=== PATIENT | female | born 1985 | race Caucasian/White ===

== ENCOUNTER 2017-02-12 16:31 | Emergency (ER) | payer BC ==
[2017-02-12] MEDS ORDERED: Sodium Chloride 0.9% 1,000 ML IV ONE (16:56)
[2017-02-12] MEDS ORDERED: Ondansetron 4 MG/2 ML SDV IVPUSH ONE (16:56)
--- NOTE | 2017-02-12 17:00 | EDM.PDOC ---
ED HPI GENERAL MEDICAL PROBLEM - General Chief Complaint: Gastrointestinal Problem Stated Complaint: THROWING UP Time Seen by Provider: 02/12/17 16:53 - History of Present Illness INITIAL COMMENTS - FREE TEXT/NARRATIVE: HISTORY AND PHYSICAL: History of present illness: Patient is a 31 white female approximately 10 weeks who is had care in ultrasonography that demonstrated a normal healthy first trimester was at concern of vomiting and diarrhea times one day she states she had some Prydeinig food yesterday and feels that that might be the culprit there's been no fever no chills no vaginal discharge bleeding or other concern she has had some mild lower abdominal cramping Review of systems: As per history of present illness and below otherwise all systems reviewed and negative. Past medical history: As per history of present illness and as reviewed below otherwise noncontributory. Surgical history: As per history of present illness and as reviewed below otherwise noncontributory. Social history: No reported history of drug or alcohol abuse. Family history: As per history of present illness and as reviewed below otherwise noncontributory. Physical exam: HEENT: Atraumatic, normocephalic, pupils reactive, negative for conjunctival pallor or scleral icterus, mucous membranes dry, throat clear, neck supple, nontender, trachea midline. Lungs: Clear to auscultation, breath sounds equal bilaterally, chest nontender. Heart: S1S2, regular, negative for clicks, rubs, or JVD. Abdomen: Soft, nondistended, nontender. Negative for masses or hepatosplenomegaly. Negative for costovertebral tenderness. Pelvis: Stable nontender. Genitourinary: Deferred. Rectal: Deferred. Extremities: Atraumatic, negative for cords or calf pain. Neurovascular unremarkable. Neuro: Awake, alert, oriented. Cranial nerves II through XII unremarkable. Cerebellum unremarkable. Motor and sensory unremarkable throughout. Exam nonfocal. Diagnostics: CBC CMP stool for C&S O&P C. difficile Therapeutics: saline 1 L bolus Zofran 4 mg IV Impression: #1 vomiting/diarrhea with dehydration #2 first trimester Definitive disposition and diagnosis as appropriate pending reevaluation and review of above. ABDOMEN Pain Score (Numeric/FACES): 7 - Related Data Allergies Allergy/AdvReac Type Severity Reaction Status Date / Time No Known Allergies Allergy Verified 02/12/17 16:42 Home Meds: Home Meds #103/Iron Fumarate/Fa [ ] 1 tab PO DAILY 02/12/17 [ History] Past Medical History - Past Health History Medical/Surgical History: Denies Medical/Surgical History [employer] History: Reports: - Past Surgical History GI Surgical History: Reports: Appendectomy Social & Family History - Family History Family Medical History: Noncontributory - Tobacco Use Smoking Status *Q: Never Smoker Second Hand Smoke Exposure: No - Caffeine Use Caffeine Use: Reports: None - Recreational Drug Use Recreational Drug Use: No ED ROS GENERAL - Review of Systems Review Of Systems: ROS reveals no pertinent complaints other than HPI. ED EXAM, GENERAL - Physical Exam Exam: See Below (See dictated) Course - Vital Signs Last Recorded V/S: Last Vital Signs Temp 36.8 C 02/12/17 16:44 Pulse 125 H 02/12/17 16:44 Resp 18 02/12/17 16:44 BP 131/84 02/12/17 16:44 Pulse Ox 98 02/12/17 16:44 - Orders/Labs/Meds Orders: Active Orders 24 hr Category Date Time Status CDIFF TOX A+B [OP] Stat Lab 02/12/17 16:58 Uncollected CULTURE STOOL + CAMPY+SHIGATOX [RM] Stat Lab 02/12/17 16:56 Uncollected CULTURE STOOL [RM] Stat Lab 02/12/17 16:56 Uncollected Labs: Laboratory Tests 02/12/17 02/12/17 Range/Units 17:04 17:04 WBC 13.52 H (4.0-11.0) K/uL RBC 4.48 (4.30-5.90) M/uL Hgb 14.8 (12.0-16.0) g/dL Hct 42.3 (36.0-46.0) % MCV 94.4 (80.0-98.0) fL MCH 33.0 H (27.0-32.0) pg MCHC 35.0 (31.0-37.0) g/dL RDW Std Deviation 40.7 (28.0-62.0) fl RDW Coeff of Mary 12 (11.0-15.0) % Plt Count 232 (150-400) K/uL MPV 10.20 (7.40-12.00) fL Neut % (Auto) 92.3 H (48.0-80.0) % Lymph % (Auto) 4.3 L (16.0-40.0) % [place] % (Auto) 3.2 (0.0-15.0) % Eos % (Auto) 0.1 (0.0-7.0) % Baso % (Auto) 0.1 (0.0-1.5) % Neut # (Auto) 12.5 H (1.4-5.7) K/uL Lymph # (Auto) 0.6 (0.6-2.4) K/uL [place] # (Auto) 0.4 (0.0-0.8) K/uL Eos # (Auto) 0.0 (0.0-0.7) K/uL Baso # (Auto) 0.0 (0.0-0.1) K/uL Nucleated RBC % 0.0 /100WBC Nucleated RBCs # 0 K/uL Sodium 135 L (136-146) mmol/L Potassium 3.6 (3.5-5.1) mmol/L Chloride 105 (98-110) mmol/L Carbon Dioxide 19 L (21-31) mmol/L BUN 12 (6.0-23.0) mg/dL Creatinine 0.8 (0.6-1.5) mg/dL Est Cr Clr Drug Dosing 112.20 mL/min Estimated GFR (MDRD) > 60.0 ml/min Glucose 107 (60-110) mg/dL Calcium 9.1 (8.8-10.8) mg/dL Total Bilirubin 0.8 (0.1-1.5) mg/dL AST 25 (5-40) IU/L ALT 35 (8-54) IU/L Alkaline Phosphatase 56 (40-150) Total Protein 7.6 (6.0-8.0) g/dL Albumin 4.4 (3.5-5.0) g/dL Globulin 3.2 (2.0-3.5) g/dL Albumin/Globulin Ratio 1.4 (1.3-2.8) Meds: Medications Discontinued Medications Generic Name Dose Route Start Last Admin Trade Name Freq PRN Reason Stop Dose Admin Sodium Chloride 1,000 mls @ 999 mls/hr 02/12/17 16:56 06/04/17 17:13 Normal Saline IV 02/12/17 17:56 999 mls/hr .Bolus ONE Administration Ondansetron HCl 4 mg 02/12/17 16:56 02/12/17 17:13 Zofran IVPUSH 02/12/17 16:57 4 mg ONETIME ONE Administration Departure - Departure Time of Disposition: 18:03 Disposition: Home, Self-Care 01 Condition: good Clinical Impression: Gastroenteritis, Dehydration, First trimester - Discharge Information Forms: ED Department Discharge Additional Instructions: The following information is given to patients seen in the emergency department who are being discharged to home. This information is to outline your options for follow-up care. We provide all patients seen in our emergency department with a follow-up referral. The need for follow-up, as well as the timing and circumstances, are variable depending upon the specifics of your emergency department visit. If you don't have a primary care physician on staff, we will provide you with a referral. We always advise you to contact your personal physician following an emergency department visit to inform them of the circumstance of the visit and for follow-up with them and/or the need for any referrals to a consulting specialist. The emergency department will also refer you to a specialist when appropriate. This referral assures that you have the opportunity for followup care with a specialist. All of these measure are taken in an effort to provide you with optimal care, which includes your followup. Under all circumstances we always encourage you to contact your private physician who remains a resource for coordinating your care. When calling for followup care, please make the office aware that this follow-up is from your recent emergency room visit. If for any reason you are refused follow-up, please contact the [facility] emergency department at and asked to speak to the emergency department charge nurse. Vaginal rest as discussed push fluids clear liquids as directed followup with primary medical doctor/[employer] 24-48 hours return as needed as discussed - My Orders Last 24 Hours: My Active Orders 02/12/17 16:56 CULTURE STOOL + CAMPY+SHIGATOX [RM] Stat CULTURE STOOL [RM] Stat 02/12/17 16:58 CDIFF TOX A+B [OP] Stat - Assessment/Plan Last 24 Hours: My Active Orders 02/12/17 16:56 CULTURE STOOL + CAMPY+SHIGATOX [RM] Stat CULTURE STOOL [RM] Stat 02/12/17 16:58 CDIFF TOX A+B [OP] Stat
[2017-02-12 17:33] LABS: CHLORIDE,CL 105 mmol/L (98-110); SODIUM,NA 135 mmol/L (136-146)
[2017-02-12 18:52] VITALS: BP 112/62
== END 2017-02-12 18:55 | disposition home or self-care (01) ==
LOC: MW.ED 16:31
DX: O99.611 Diseases of the digestive system complicating pregnancy, first trimester (principal); K52.9 Noninfective gastroenteritis and colitis, unspecified; E86.0 Dehydration; Z3A.10 10 weeks gestation of pregnancy; Z90.49 Acquired absence of other specified parts of digestive tract; Z79.899 Other long term (current) drug therapy
CPT/HCPCS: 36415; 80053; 85025; 96361; 96374; 99284; J2405; J7040

== ENCOUNTER 2017-09-08 14:01 | Inpatient (IN) | payer BC ==
[2017-09-08] MEDS ORDERED: Sodium Chloride 0.9% 2.5 ML Syringe FLUSH PRN (14:19)
[2017-09-08] MEDS ORDERED: Carboprost Tromethamine 250 MCG/1 ML Amp IM PRN (14:19)
[2017-09-08] MEDS ORDERED: Lidocaine 1% 50 ML MDV INJECT PRN (14:19)
[2017-09-08] MEDS ORDERED: Water For Irrigation,Sterile 1,000 ML Container IRR PRN (14:19)
[2017-09-08] MEDS ORDERED: Methylergonovine 0.2 MG/1 ML Amp IM PRN (14:19)
[2017-09-08] MEDS ORDERED: Misoprostol 200 MCG Tab PO PRN (14:19)
[2017-09-08] MEDS ORDERED: Sodium Chloride 0.9% 10 ML Syringe FLUSH PRN (14:19)
[2017-09-08] MEDS ORDERED: Nalbuphine 10 MG/1 ML Vial IVPUSH PRN (14:19)
[2017-09-08] MEDS ORDERED: Butorphanol 1 MG/ML SDV IVPUSH PRN (14:19)
[2017-09-08] MEDS ORDERED: Oxytocin/0.9 % Sodium Chloride 30 UNIT/500 ML BAG IV SCH (14:30)
[2017-09-08] MEDS ORDERED: Lactated Ringers 1,000 ML IV SCH (14:30)
[2017-09-08] MEDS ORDERED: Ropivacaine 0.2% 2 MG/ML 20 ML SDV ONE (15:14)
[2017-09-08] MEDS ORDERED: fentaNYL 100 MCG/2 ML SDV ONE (15:14)
[2017-09-08] MEDS ORDERED: Ropivacaine 100 ML ONE (15:14)
--- NOTE | 2017-09-08 16:01 | PCM.PREANE ---
Preanesthetic Assessment - Procedure Proposed Procedure: labor epidural - Anesthesia/Transfusion/Family Hx Anesthesia History: Prior Anesthesia Without Reaction (appendectomy) Type of Anesthesia Reaction: Other (see below) Family History of Anesthesia Reaction: No Transfusion History: No Prior Transfusion(s) - Review of Systems General: No Symptoms Pulmonary: No Symptoms Cardiovascular: No Symptoms Gastrointestinal: No Symptoms Neurological: No Symptoms Other: Reports: None - Physical Assessment NPO Status Date: 09/08/17 NPO Status Time: 16:00 (clear liquids) ASA Class: 2 Mental Status: Alert & Oriented x3 Airway Class: Mallampati = 2 Dentition: Reports: Normal Dentition Thyro-Mental Finger Breadths: 3 Mouth Opening Finger Breadths: 3 ROM/Head Extension: Full Lungs: Clear to Auscultation, Normal Respiratory Effort Cardiovascular: Regular Rate, Regular Rhythm - Lab Values: Laboratory Last Values WBC 14.18 K/uL (4.0-11.0) H 09/08/17 14:38 RBC 4.19 M/uL (4.30-5.90) L 09/08/17 14:38 Hgb 13.7 g/dL (12.0-16.0) 09/08/17 14:38 Hct 39.8 % (36.0-46.0) 09/08/17 14:38 MCV 95.0 fL (80.0-98.0) 09/08/17 14:38 MCH 32.7 pg (27.0-32.0) H 09/08/17 14:38 MCHC 34.4 g/dL (31.0-37.0) 09/08/17 14:38 RDW Std Deviation 44.7 fl (28.0-62.0) 09/08/17 14:38 RDW Coeff of Mary 13 % (11.0-15.0) 09/08/17 14:38 Plt Count 207 K/uL (150-400) 09/08/17 14:38 MPV 10.40 fL (7.40-12.00) 09/08/17 14:38 Nucleated RBC % 0.0 /100WBC 09/08/17 14:38 Nucleated RBCs # 0 K/uL 09/08/17 14:38 Blood Type AB POSITIVE 09/08/17 14:38 Antibody Screen NEGATIVE 09/08/17 14:38 - Allergies Allergies/Adverse Reactions: Allergies Allergy/AdvReac Type Severity Reaction Status Date / Time No Known Allergies Allergy Verified 02/12/17 16:42 - Blood Blood Available: Yes Product(s) Available: PRBC - Anesthesia Plan Pre-Op Medication Ordered: None - Acknowledgements Anesthesia Type Planned: Epidural Pt an Appropriate Candidate for the Planned Anesthesia: Yes Alternatives and Risks of Anesthesia Discussed w Pt/Guardian: Yes Pt/Guardian Understands and Agrees with Anesthesia Plan: Yes PreAnesthesia Questionnaire - Past Health History Medical/Surgical History: Denies 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: - Past Surgical History GI Surgical History: Reports: Appendectomy - SUBSTANCE USE Smoking Status *Q: Never Smoker Second Hand Smoke Exposure: No Recreational Drug Use History: No - HOME MEDS Home Medications: Home Meds #103/Iron Fumarate/Fa [ ] 1 tab PO DAILY 02/12/17 [ History] - CURRENT (IN HOUSE) MEDS Current Meds: Current Medications Butorphanol Tartrate (Stadol) 1 mg IVPUSH Q1H PRN PRN Reason: Pain Carboprost Tromethamine (Hemabate Ds) 250 mcg IM ASDIRECTED PRN PRN Reason: Post Hemorrhage Lactated Ringer's (Ringers, Lactated) 1,000 mls @ 150 mls/hr IV ASDIRECTED [facility] Last Admin: 09/08/17 14:40 Dose: 999 mls/hr Oxytocin/Sodium Chloride (Oxytocin 30 Unit/500 Ml-Ns) 30 unit in 500 mls @ 999 mls/hr IV TITRATE [facility] Lidocaine HCl (Xylocaine 1%) 50 ml INJECT .ONCE PRN PRN Reason: Laceration repair Methylergonovine Maleate (Methergine) 0.2 mg IM ASDIRECTED PRN PRN Reason: Post Hemorrhage Misoprostol (Cytotec) 200 mcg PO .ONCE PRN PRN Reason: Post Hemorrhage Nalbuphine HCl (Nubain) 10 mg IVPUSH Q1H PRN PRN Reason: Pain (severe 7-10) Sodium Chloride (Saline Flush) 10 ml FLUSH ASDIRECTED PRN PRN Reason: Keep Vein Open Sodium Chloride (Saline Flush) 2.5 ml FLUSH ASDIRECTED PRN PRN Reason: Keep Vein Open Sterile Water (Sterile Water For Irrigation) 1,000 ml IRR ASDIRECTED PRN PRN Reason: delivery Discontinued Medications Fentanyl (Sublimaze) Confirm Administered Dose 300 mcg .ROUTE .STK-MED ONE Stop: 09/08/17 15:15 Ropivacaine (Naropin 0.2%) Confirm Administered Dose 100 mls @ as directed .ROUTE .STK-MED ONE Stop: 09/08/17 15:15 Ropivacaine (Naropin 0.2%) Confirm Administered Dose 20 ml .ROUTE .STK-MED ONE Stop: 09/08/17 15:15
--- NOTE | 2017-09-08 16:05 | PCM.PRNOTE ---
- Free Text/Narrative Note: called to place epidural for increasing labor pain. Pt identified and procedure explained. risks reviewed including bleeding, infection, nerve pain, nerve damage, and unsuccessful epidural. pt agrees both verbally and written consent. sitting up, sterile betadine prep times three with sterile drape. 1% lidocaine given SQ at L3. #17 touhy ANGEL saline, ANGEL easily found at 5 cm. no heme or paresthesia with needle placement, but pt did feel initial paresthesia on right side with catheter placement. catheter placed easily, taped at 10 cm at skin. test dose 1.5% lidocaine with epinephrine 1:200,000. negative reaction. epidural bolus with Patient HOB at 30 degrees, ALEXIS. bolus of 0.2% ropivicaine and 100 mcg fentanyl given in divided doses over 20 minutes. Pt feeling relief with contractions, pain now 2/10. epidural infusion running at 8ml/hr with fentanyl 2 mcg/ml. PCEA bolus available 8 ml/10 min with hourly limit of 30 ml' s. Educated on use of PCEA. vital signs remain stable, FHR stable
[2017-09-08] MEDS ORDERED: Ibuprofen 800 MG Tab PO PRN (19:15)
[2017-09-08] MEDS ORDERED: Benzocaine/Menthol 20%-0.5% Spray 78 GM Cannister TOP PRN (19:15)
[2017-09-08] MEDS ORDERED: Witch Hazel Medicated Pads 40/Jar TOP PRN (19:15)
[2017-09-08] MEDS ORDERED: Lanolin 100% Cream 7 GM Tube TOP PRN (19:15)
[2017-09-08] MEDS ORDERED: Ibuprofen 400 MG Tab PO PRN (19:15)
[2017-09-08] MEDS ORDERED: Docusate Sodium 100 MG Cap PO PRN (19:15)
[2017-09-08] MEDS ORDERED: Acetaminophen 500 MG Tab PO PRN ×2 (19:15)
[2017-09-08] MEDS ORDERED: Bisacodyl 10 MG Supp RECTAL PRN (19:15)
--- NOTE | 2017-09-09 02:00 | OR ---
SURGEON: Klarissa Díaz MD DATE OF PROCEDURE: 09/08/2017 PREOPERATIVE DIAGNOSES: 1. Term at 39 weeks and 4 days. 2. Spontaneous labor. POSTOPERATIVE DIAGNOSES: 1. Term at 39 weeks and 4 days. 2. Spontaneous labor. 3. Delivered. PROCEDURES: 1. Spontaneous vaginal delivery. 2. Repair of perineal laceration. ANESTHESIA: Epidural. ESTIMATED BLOOD LOSS: 100 mL. COMPLICATIONS: None. DISPOSITION: Mother and baby stable, bonding in Labor and Delivery room. FINDINGS: Male , weight 3670 grams, score 9 and 9 at 1 and 5 minutes respectively. Grossly normal placenta with 3-vessel cord. Left labial laceration. BRIEF HISTORY: Shelli is a 32-year-old G2, P1, who presented to Labor and delivery at about 2 o'clock with a history of regular contractions, denied vaginal bleeding or leakage of fluid. Reported movement. The patient had been seen earlier at the clinic in the day for her routine visit and had a membrane sweep performed, at that time, she was 3 cm dilated. When she presented to Labor and Delivery, she was found to be 5 to 6 cm dilated, gayle every 2 to 3 minutes. Membranes intact and requesting an epidural for pain. care was uncomplicated. GBS negative. She received epidural for pain management and thereafter progressed to full dilatation and commenced active pushing. heart tracing remained category 1. She pushed quite well, bringing the head down to + 4 station within 2 contractions and was set up for delivery in modified dorsolithomy position DESCRIPTION OF PROCEDURE: She had a spontaneous vaginal delivery of a live male in direct occipital anterior position with a loose nuchal cord reduced, clear amniotic fluid at delivery.The anterior and the posterior shoulders and the rest of the baby were delivered without difficulty. Baby was vigorous and cried spontaneously at . The baby was delivered onto the maternal abdomen with the nursery nurse in attendant to him. Delayed cord clamping was performed and the cord was subsequently cut by the father of the baby. With delivery of the infant oxytocin infusion, titration was commenced for active management of third stage of labor. Cord blood and gas samples were obtained. The placenta was delivered by controlled cord traction, appeared to be complete and intact. Examination of the perineum revealed left labial laceration extending to the clitoral marion, and it kept bleeding despite digital pressure. It was, therefore, repaired with 3-0 Vicryl using continuous nonlocking stitches. It was hemostatic post repair. Uterine massage was performed. The uterus was found to be well contracted below the umbilicus. The patient tolerated the procedure well. Sponge, instrument, and needle counts were correct at the end of the delivery. ADUMVIV / DBL /[id number] MTDD
--- NOTE | 2017-09-09 09:22 | PCM48HPAN ---
Post Anesthesia Note - EVALUATION WITHIN 48HRS OF ANESTHETIC Vital Signs in Normal Range: Yes Patient Participated in Evaluation: Yes Respiratory Function Stable: Yes Airway Patent: Yes Cardiovascular Function Stable: Yes Hydration Status Stable: Yes Pain Control Satisfactory: Yes Nausea and Vomiting Control Satisfactory: Yes Mental Status Recovered: Yes
--- NOTE | 2017-09-09 13:08 | PCM.PNPP ---
- General Info Date of Service: 09/09/17 Functional Status: Reports: Pain Controlled, Tolerating Diet, Ambulating, Urinating - Review of Systems General: Denies: Fever, Malaise, Chills HEENT: Denies: Headaches, Visual Changes Pulmonary: Denies: Shortness of Breath, Pleuritic Chest Pain Cardiovascular: Denies: Chest Pain, Palpitations, Dyspnea on Exertion Gastrointestinal: Denies: Abdominal Pain Genitourinary: Denies: Dysuria, Urgency, Incontinence, Retention Musculoskeletal: Reports: No Symptoms Skin: Reports: No Symptoms Neurological: Reports: No Symptoms Psychiatric: Reports: No Symptoms - General Info Date of Service: 09/09/17 - Patient Data Vital Signs - Most Recent: Last Vital Signs Temp 36.8 C 09/09/17 08:05 Pulse 83 09/09/17 08:05 Resp 16 09/09/17 08:05 BP 97/57 L 09/09/17 08:05 Pulse Ox 95 09/09/17 08:05 Weight - Most Recent: 223 lb Lab Results - Last 24 Hours: Laboratory Results - last 24 hr 09/08/17 09/08/17 09/09/17 Range/Units 14:38 14:38 05:56 WBC 14.18 H (4.0-11.0) K/uL RBC 4.19 L (4.30-5.90) M/uL Hgb 13.7 11.4 L (12.0-16.0) g/dL Hct 39.8 32.8 L (36.0-46.0) % MCV 95.0 (80.0-98.0) fL MCH 32.7 H (27.0-32.0) pg MCHC 34.4 (31.0-37.0) g/dL RDW Std Deviation 44.7 (28.0-62.0) fl RDW Coeff of Mary 13 (11.0-15.0) % Plt Count 207 (150-400) K/uL MPV 10.40 (7.40-12.00) fL Nucleated RBC % 0.0 /100WBC Nucleated RBCs # 0 K/uL Blood Type AB POSITIVE Antibody Screen NEGATIVE Med Orders - Current: Current Medications Acetaminophen (Tylenol Extra Strength) 500 mg PO Q4H PRN PRN Reason: Pain Acetaminophen (Tylenol Extra Strength) 1,000 mg PO Q4H PRN PRN Reason: Pain Benzocaine/Menthol (Dermoplast Pain Relief 20%-0.5% [place]) 0 gm TOP ASDIRECTED PRN PRN Reason: Perineal Comfort Measure Last Admin: 09/08/17 21:47 Dose: 1 can Bisacodyl (Dulcolax) 10 mg RECTAL .ONCE PRN PRN Reason: Constipation Docusate Sodium (Colace) 100 mg PO BID PRN PRN Reason: Constipation Emollient Ointment (Lansinoh Hpa) 0 gm TOP ASDIRECTED PRN PRN Reason: Sore Nipples Last Admin: 09/08/17 21:46 Dose: 1 tube Ibuprofen (Motrin) 400 mg PO Q4H PRN PRN Reason: Pain Ibuprofen (Motrin) 800 mg PO Q6H PRN PRN Reason: Pain Last Admin: 09/09/17 05:24 Dose: 800 mg Witch Fifi (Tucks) 1 pad TOP ASDIRECTED PRN PRN Reason: comfort care Last Admin: 09/08/17 21:46 Dose: 1 tub Discontinued Medications Butorphanol Tartrate (Stadol) 1 mg IVPUSH Q1H PRN PRN Reason: Pain Carboprost Tromethamine (Hemabate Ds) 250 mcg IM ASDIRECTED PRN PRN Reason: Post Hemorrhage Fentanyl (Sublimaze) Confirm Administered Dose 300 mcg .ROUTE .STAWID-MED ONE Stop: 09/08/17 15:15 Last Admin: 09/09/17 00:46 Dose: Not Given Lactated Ringer's (Ringers, Lactated) 1,000 mls @ 150 mls/hr IV ASDIRECTED [facility] Last Admin: 09/08/17 14:40 Dose: 999 mls/hr Oxytocin/Sodium Chloride (Oxytocin 30 Unit/500 Ml-Ns) 30 unit in 500 mls @ 999 mls/hr IV TITRATE [facility]RE Ropivacaine (Naropin 0.2%) Confirm Administered Dose 100 mls @ as directed .ROUTE .STK-MED ONE Stop: 09/08/17 15:15 Last Admin: 09/09/17 00:46 Dose: Not Given Lidocaine HCl (Xylocaine 1%) 50 ml INJECT .ONCE PRN PRN Reason: Laceration repair Methylergonovine Maleate (Methergine) 0.2 mg IM ASDIRECTED PRN PRN Reason: Post Hemorrhage Misoprostol (Cytotec) 200 mcg PO .ONCE PRN PRN Reason: Post Hemorrhage Nalbuphine HCl (Nubain) 10 mg IVPUSH Q1H PRN PRN Reason: Pain (severe 7-10) Ropivacaine (Naropin 0.2%) Confirm Administered Dose 20 ml .ROUTE .STK-MED ONE Stop: 09/08/17 15:15 Last Admin: 09/09/17 00:46 Dose: Not Given Sodium Chloride (Saline Flush) 10 ml FLUSH ASDIRECTED PRN PRN Reason: Keep Vein Open Sodium Chloride (Saline Flush) 2.5 ml FLUSH ASDIRECTED PRN PRN Reason: Keep Vein Open Sterile Water (Sterile Water For Irrigation) 1,000 ml IRR ASDIRECTED PRN PRN Reason: delivery - Interaction Disposition, : in Room with Family Infant Interaction: Holding Infant Feeding: Breastfed Infant; Nursed Well Support Person: - Recovery Exam Fundal Tone: Firm Fundal Level: 1 Fingerbreadths Below Umbilicus Fundal Placement: Midline Lochia Amount: Scant Lochia Color: Rubra/Red Perineum Description: Intact, Minimal Bruising/Swelling Other Perinuem Description: labial laceration, repaired Episiotomy/Laceration: Approximated Bladder Status: Voiding Urinary Elimination: Voided - Exam General: Alert, Oriented HEENT: Pupils Equal Lungs: Clear to Auscultation, Normal Respiratory Effort Cardiovascular: Regular Rate, Regular Rhythm GI/Abdominal Exam: Soft, Non-Tender Extremities: Non-Tender, Pedal Edema Skin: Warm Psy/Mental Status: Alert, Normal Affect, Normal Mood - Problem List & Annotations (1) Vaginal delivery SNOMED Code(s): 869760465 Code(s): O80 - ENCOUNTER FOR FULL-TERM UNCOMPLICATED DELIVERY Status: Acute Current Visit: Yes - Problem List Review Problem List Initiated/Reviewed/Updated: Yes - My Orders Last 24 Hours: My Active Orders 09/08/17 14:06 Non Stress Test [RC] PER UNIT ROUTINE Up ad Diamante [RC] ASDIRECTED Vaginal Exam [RC] Click to Edit Vital Signs [RC] PER UNIT ROUTINE 09/08/17 14:19 Heart Tones [RC] CONTINUOUS Non Stress Test [RC] PER UNIT ROUTINE May Shower [RC] ASDIRECTED Notify Provider [RC] PRN Up ad Diamante [RC] ASDIRECTED Vaginal Exam [RC] PRN Vital Signs [RC] PER UNIT ROUTINE 09/08/17 19:15 Patient Status [ADT] Routine May Shower [RC] ASDIRECTED Up ad Diamante [RC] ASDIRECTED Vital Signs [RC] PER UNIT ROUTINE Acetaminophen [Tylenol Extra Strength] 1,000 mg PO Q4H PRN Acetaminophen [Tylenol Extra Strength] 500 mg PO Q4H PRN Benzocaine/Menthol [Dermoplast Pain Relief 20%-0.5% [place]] 0 gm TOP ASDIRECTED PRN Bisacodyl [Dulcolax] 10 mg RECTAL .ONCE PRN Docusate Sodium [Colace] 100 mg PO BID PRN Ibuprofen [Motrin] 400 mg PO Q4H PRN Ibuprofen [Motrin] 800 mg PO Q6H PRN Lanolin [Lansinoh HPA] See Dose Instructions TOP ASDIRECTED PRN Witch Fifi [Tucks] 1 pad TOP ASDIRECTED PRN Assess Lochia [WOMSER] Per Unit Routine Assess Uterine Involution [WOMSER] Per Unit Routine Breast Pump [WOMSER] Per Unit Routine Peripheral IV Discontinue [OM.PC] Routine Resuscitation Status Routine 09/08/17 19:16 Perineal Care [OM.PC] Per Unit Routine 09/09/17 Breakfast Regular Diet [DIET] - Assessment Assessment:: PPD#1 s/p , stable and afebrile - Plan Plan:: Continue current care and aim for discharge tomorrow
[2017-09-10 07:46] VITALS: BP 109/76
--- NOTE | 2017-09-10 08:31 | PCM.PNPP ---
- General Info Date of Service: 09/10/17 Functional Status: Reports: Pain Controlled, Tolerating Diet, Ambulating, Urinating - Review of Systems General: Denies: Fever, Malaise, Chills HEENT: Denies: Headaches Pulmonary: Denies: Shortness of Breath, Pleuritic Chest Pain Cardiovascular: Denies: Chest Pain, Palpitations, Dyspnea on Exertion Gastrointestinal: Denies: Abdominal Pain Genitourinary: Denies: Dysuria, Urgency, Incontinence, Retention Musculoskeletal: Reports: No Symptoms Skin: Reports: No Symptoms Neurological: Reports: No Symptoms Psychiatric: Reports: No Symptoms - General Info Date of Service: 09/10/17 - Patient Data Vital Signs - Most Recent: Last Vital Signs Temp 36.6 C 09/10/17 07:44 Pulse 87 09/10/17 07:44 Resp 16 09/10/17 07:44 BP 109/76 09/10/17 07:44 Pulse Ox 98 09/10/17 07:44 Weight - Most Recent: 223 lb Med Orders - Current: Current Medications Acetaminophen (Tylenol Extra Strength) 500 mg PO Q4H PRN PRN Reason: Pain Acetaminophen (Tylenol Extra Strength) 1,000 mg PO Q4H PRN PRN Reason: Pain Benzocaine/Menthol (Dermoplast Pain Relief 20%-0.5% [place]) 0 gm TOP ASDIRECTED PRN PRN Reason: Perineal Comfort Measure Last Admin: 09/08/17 21:47 Dose: 1 can Bisacodyl (Dulcolax) 10 mg RECTAL .ONCE PRN PRN Reason: Constipation Docusate Sodium (Colace) 100 mg PO BID PRN PRN Reason: Constipation Emollient Ointment (Lansinoh Hpa) 0 gm TOP ASDIRECTED PRN PRN Reason: Sore Nipples Last Admin: 09/08/17 21:46 Dose: 1 tube Ibuprofen (Motrin) 400 mg PO Q4H PRN PRN Reason: Pain Ibuprofen (Motrin) 800 mg PO Q6H PRN PRN Reason: Pain Last Admin: 09/09/17 05:24 Dose: 800 mg Witch Fifi (Tucks) 1 pad TOP ASDIRECTED PRN PRN Reason: comfort care Last Admin: 09/08/17 21:46 Dose: 1 tub Discontinued Medications Butorphanol Tartrate (Stadol) 1 mg IVPUSH Q1H PRN PRN Reason: Pain Carboprost Tromethamine (Hemabate Ds) 250 mcg IM ASDIRECTED PRN PRN Reason: Post Hemorrhage Fentanyl (Sublimaze) Confirm Administered Dose 300 mcg .ROUTE .[employer]-i[employer] ONE Stop: 09/08/17 15:15 Last Admin: 09/09/17 00:46 Dose: Not Given Lactated Ringer's (Ringers, Lactated) 1,000 mls @ 150 mls/hr IV ASDIRECTED ANDRE Last Admin: 09/08/17 14:40 Dose: 999 mls/hr Oxytocin/Sodium Chloride (Oxytocin 30 Unit/500 Ml-Ns) 30 unit in 500 mls @ 999 mls/hr IV TITRATE [facility] Ropivacaine (Naropin 0.2%) Confirm Administered Dose 100 mls @ as directed .ROUTE .[employer] ONE Stop: 09/08/17 15:15 Last Admin: 09/09/17 00:46 Dose: Not Given Lidocaine HCl (Xylocaine 1%) 50 ml INJECT .ONCE PRN PRN Reason: Laceration repair Methylergonovine Maleate (Methergine) 0.2 mg IM ASDIRECTED PRN PRN Reason: Post Hemorrhage Misoprostol (Cytotec) 200 mcg PO .ONCE PRN PRN Reason: Post Hemorrhage Nalbuphine HCl (Nubain) 10 mg IVPUSH Q1H PRN PRN Reason: Pain (severe 7-10) Ropivacaine (Naropin 0.2%) Confirm Administered Dose 20 ml .ROUTE .[employer] ONE Stop: 09/08/17 15:15 Last Admin: 09/09/17 00:46 Dose: Not Given Sodium Chloride (Saline Flush) 10 ml FLUSH ASDIRECTED PRN PRN Reason: Keep Vein Open Sodium Chloride (Saline Flush) 2.5 ml FLUSH ASDIRECTED PRN PRN Reason: Keep Vein Open Sterile Water (Sterile Water For Irrigation) 1,000 ml IRR ASDIRECTED PRN PRN Reason: delivery - Interaction Disposition, : [place] in Room with Family Infant Interaction: Holding Feeding: Breastfed ; Nursed Well Support Person: - Recovery Exam Fundal Tone: Firm Fundal Level: 1 Fingerbreadths Below Umbilicus Fundal Placement: Midline Lochia Amount: Scant Lochia Color: Rubra/Red Perineum Description: Intact, Minimal Bruising/Swelling Other Perinuem Description: labial laceration, repaired Episiotomy/Laceration: Approximated Bladder Status: Voiding Urinary Elimination: Voided - Exam General: Alert, Oriented Neck: Supple Lungs: Clear to Auscultation, Normal Respiratory Effort Cardiovascular: Regular Rate, Regular Rhythm GI/Abdominal Exam: Normal Bowel Sounds, Soft, Non-Tender Extremities: Non-Tender, Pedal Edema Skin: Warm Psy/Mental Status: Alert, Normal Affect, Normal Mood - Problem List & Annotations (1) Vaginal delivery SNOMED Code(s): 542012932 Code(s): O80 - ENCOUNTER FOR FULL-TERM UNCOMPLICATED DELIVERY Status: Acute Current Visit: Yes - Problem List Review Problem List Initiated/Reviewed/Updated: Yes - Assessment Assessment:: PPD#2 s/p , stable and afebrile Doing well and clinically stable for discharge - Plan Plan:: Discharge instructions reviewed Nothing in the vagina for 6 weeks Bleeding and infection precautions reviewed blues and depression S/S reviewed Continue PNV May use OTC Pain meds Follow up in 6 weeks
== END 2017-09-10 11:25 | disposition home or self-care (01) | DRG 560 ==
LOC: MW.OBCHECK 14:01 → MW.OB 14:03 → MW.OBCHECK 14:19 → UNDOADMOB 14:19 → MW.OB 14:19 → OBSVTOIN 18:32 → INTOOBSV 18:32 → MW.OB 22:36 → UNDODISIN 09-10 11:25
PROVIDERS: ADMIT Obstetrics & Gynecology; ATTEND Obstetrics & Gynecology
PROC: 10E0XZZ Delivery of Products of Conception, External Approach (ICD-10-PCS; principal; 2017-09-08)
PROC: 0HQ9XZZ Repair Perineum Skin, External Approach (ICD-10-PCS; 2017-09-08)
DX: O70.0 First degree perineal laceration during delivery (principal); Z3A.39 39 weeks gestation of pregnancy; Z37.0 Single live birth
CPT/HCPCS: 01967; 36415; 51702; 59025; 59409; 85014; 85018; 85027; 86850; 86900; 86901; A9270-GY; J2795; J3010; J7120

== ENCOUNTER 2019-05-09 13:26 | Inpatient (IN) | payer BC ==
[2019-05-09] MEDS ORDERED: Lidocaine 1% 50 ML MDV INJECT PRN (16:02)
[2019-05-09] MEDS ORDERED: Carboprost Tromethamine 250 MCG/1 ML Amp IM PRN (16:02)
[2019-05-09] MEDS ORDERED: Tranexamic Acid 1,000 MG in Sodium Chloride 0.9% 100 ML IV PRN (16:02)
[2019-05-09] MEDS ORDERED: Water For Irrigation,Sterile 1,000 ML Container IRR PRN (16:02)
[2019-05-09] MEDS ORDERED: Sodium Chloride 0.9% 2.5 ML Syringe FLUSH PRN (16:02)
[2019-05-09] MEDS ORDERED: Sodium Chloride 0.9% 10 ML Syringe FLUSH PRN (16:02)
[2019-05-09] MEDS ORDERED: Sodium Chloride 0.9% 10 ML SDV IV PRN (16:02)
[2019-05-09] MEDS ORDERED: Butorphanol 1 MG/ML SDV IVPUSH PRN (16:02)
[2019-05-09] MEDS ORDERED: Methylergonovine 0.2 MG/1 ML Amp IM PRN (16:02)
[2019-05-09] MEDS ORDERED: Misoprostol 200 MCG Tab PO PRN (16:02)
[2019-05-09] MEDS ORDERED: Nalbuphine 10 MG/1 ML Vial IVPUSH PRN (16:02)
[2019-05-09] MEDS ORDERED: Oxytocin/0.9 % Sodium Chloride 30 UNIT/500 ML BAG IV SCH (16:15)
[2019-05-09] MEDS: Lactated Ringers 1,000 ML IV SCH ×2 (16:16→17:35)
--- NOTE | 2019-05-09 16:17 | PCM.PREANE ---
Preanesthetic Assessment - Anesthesia/Transfusion/Family Hx Anesthesia History: Prior Anesthesia Without Reaction Transfusion History: No Prior Transfusion(s) - Review of Systems General: No Symptoms Pulmonary: No Symptoms Cardiovascular: No Symptoms Gastrointestinal: No Symptoms Neurological: No Symptoms Other: Reports: None - Physical Assessment Height: 5 ft 9 in Weight: 93.894 kg ASA Class: 2 Mental Status: Alert & Oriented x3 Airway Class: Mallampati = 2 Dentition: Reports: Normal Dentition Thyro-Mental Finger Breadths: 3 Mouth Opening Finger Breadths: 3 ROM/Head Extension: Full Lungs: Clear to Auscultation, Normal Respiratory Effort Cardiovascular: Regular Rate, Regular Rhythm - Allergies Allergies/Adverse Reactions: Allergies Allergy/AdvReac Type Severity Reaction Status Date / Time No Known Allergies Allergy Verified 02/12/17 16:42 - Acknowledgements Anesthesia Type Planned: Epidural Pt an Appropriate Candidate for the Planned Anesthesia: Yes Alternatives and Risks of Anesthesia Discussed w Pt/Guardian: Yes Pt/Guardian Understands and Agrees with Anesthesia Plan: Yes PreAnesthesia Questionnaire - Past Health History Medical/Surgical History: Denies Medical/Surgical History HEENT History: Reports: None Cardiovascular History: Reports: None Respiratory History: Reports: None Gastrointestinal History: Reports: GERD Genitourinary History: Reports: None DENTAL HYGIENIST MOBILE COORDINATOR History: Reports: : 3 Para: 2 LMP (Approximate): Musculoskeletal History: Reports: None Neurological History: Reports: None Psychiatric History: Reports: None Endocrine/Metabolic History: Reports: Obesity/BMI 30+ Hematologic History: Reports: None Immunologic History: Reports: None Oncologic (Cancer) History: Reports: None Dermatologic History: Reports: None - Infectious Disease History Infectious Disease History: Reports: Chicken Pox - Past Surgical History GI Surgical History: Reports: Appendectomy - HOME MEDS Home Medications: Home Meds #103/Iron Fumarate/Fa [ ] 1 tab PO DAILY 02/12/17 [ History] - CURRENT (IN HOUSE) MEDS Current Meds: Current Medications Butorphanol Tartrate (Stadol) 1 mg IVPUSH Q1H PRN PRN Reason: Pain Carboprost Tromethamine (Hemabate Ds) 250 mcg IM ASDIRECTED PRN PRN Reason: Post Hemorrhage Lactated Ringer's (Ringers, Lactated) 1,000 mls @ 150 mls/hr IV ASDIRECTED ANDRE Oxytocin/Sodium Chloride (Oxytocin 30 Unit/500 Ml-Ns) 30 unit in 500 mls @ 999 mls/hr IV TITRATE ANDRE Tranexamic Acid 1,000 mg/ (Sodium Chloride) 110 mls @ 660 mls/hr IV ONETIME PRN PRN Reason: Bleeding Lidocaine HCl (Xylocaine 1%) 50 ml INJECT ONETIME PRN PRN Reason: Laceration repair Methylergonovine Maleate (Methergine) 0.2 mg IM ASDIRECTED PRN PRN Reason: Post Hemorrhage Misoprostol (Cytotec) 200 mcg PO ONETIME PRN PRN Reason: Post Hemorrhage Nalbuphine HCl (Nubain) 10 mg IVPUSH Q1H PRN PRN Reason: Pain (severe 7-10) Sodium Chloride (Saline Flush) 10 ml FLUSH ASDIRECTED PRN PRN Reason: Keep Vein Open Sodium Chloride (Saline Flush) 2.5 ml FLUSH ASDIRECTED PRN PRN Reason: Keep Vein Open Sodium Chloride (Normal Saline) 10 ml IV ASDIRECTED PRN PRN Reason: IV Use Sterile Water (Sterile Water For Irrigation) 1,000 ml IRR ASDIRECTED PRN PRN Reason: delivery
[2019-05-09] MEDS ORDERED: Benzocaine/Menthol 20%-0.5% Spray 78 GM Cannister TOP PRN (20:51)
[2019-05-09] MEDS ORDERED: oxyCODONE 5 MG Tab PO PRN (20:51)
[2019-05-09] MEDS ORDERED: Aluminum Hydroxide/Magnesium Hydroxide/Simethicone Susp 30 ML Cup PO PRN (20:51)
[2019-05-09] MEDS ORDERED: Ondansetron 4 MG/2 ML SDV IVPUSH PRN (20:51)
[2019-05-09] MEDS ORDERED: Acetaminophen 500 MG Tab PO PRN ×2 (20:51)
[2019-05-09] MEDS ORDERED: Lanolin 100% Cream 7 GM Tube TOP PRN (20:51)
[2019-05-09] MEDS ORDERED: Bisacodyl 10 MG Supp RECTAL PRN (20:51)
[2019-05-09] MEDS ORDERED: Ibuprofen 400 MG Tab PO PRN (20:51)
[2019-05-09] MEDS ORDERED: Witch Hazel Medicated Pads 40/Jar TOP PRN (20:51)
--- NOTE | 2019-05-09 21:00 | PCM.OPNOTE ---
- General Post-Op/Procedure Note Date of Surgery/Procedure: 05/09/19 Operative Procedure(s): /1st MLL repaired Findings: Viable male APGARs 9, 9 weight pending. Spontaneous delivery intact placenta with 3V cord Pre Op Diagnosis: 39/3 week IUP. Labor Post-Op Diagnosis: same Anesthesia Technique: Epidural Primary Surgeon: Joanne Smiley EBL in mLs: 200 Complications: none known Condition: Good Free Text/Narrative:: Dictation [id number]
[2019-05-09] MEDS: Ibuprofen 800 MG Tab PO PRN (21:19)
--- NOTE | 2019-05-10 04:23 | OR ---
SURGEON: Joanne Smiley M.D. DATE OF PROCEDURE: 05/09/2019 PREOPERATIVE DIAGNOSES: 1. A 39 and 3 weeks' intrauterine . 2. Active labor. POSTOPERATIVE DIAGNOSES: 1. A 39 and 3 weeks' intrauterine . 2. Active labor. PROCEDURES: Spontaneous vaginal delivery, first-degree midline laceration repair. PRIMARY SURGEON: Joanne Smiley M.D. ANESTHESIA: Epidural. ESTIMATED BLOOD LOSS: 200 mL. COMPLICATIONS: None known. FINDINGS: Viable male. score 9 at one minute and 9 at five minutes. Weight is pending. Spontaneous delivery, intact placenta, 3-vessel cord. DISPOSITION: to Nursery, mom in LDRP. PROCEDURE DETAILS: Shelli is a 33-year-old, G3, P2, at 39 and 3 weeks' gestation who presents with regular contractions this afternoon. On evaluation, changed her cervix from 3 to 5 cm. She was admitted. Routine labs were drawn. IV hydration was initiated. She underwent regional anesthesia in the form of epidural, became more comfortable, and shortly thereafter began progressing rapidly. Shortly before 8 p.m., she was found to be 8 cm, and within the next 20 minutes, progressed to complete, 100% effaced, +3 station with spontaneous rupture of membranes, clear fluid, and feeling the urge to push. The patient was placed in modified dorsal lithotomy position, was prepped and draped in the usual aseptic manner, and began pushing efforts, was able to push effectively and deliver 's head atraumatically spontaneously, followed by anterior shoulder, posterior shoulder, and remainder of the body without difficulty. The 's oropharynx and nares bulb suctioned. Infant was handed off to his mother with attending nursing staff at side. After a delay, the cord was clamped x2 and cut. Cord arterial, cord venous, cord blood sampling were obtained. Light pressure was applied while the placenta was delivered spontaneously intact. Vigorous fundal uterine massage was then applied while 30 units of Pitocin was delivered in 500 mL of IV fluid. Upon inspection of cervix, vaginal sidewall, and perineum, there was found to be a first-degree midline laceration. It was repaired using 3-0 Vicryl in the usual fashion. Uterus remained firm. Hemostasis evident. Sponge, instrument, and needle count was correct. The patient remained in LDRP, to [facility]. SOLBSAR / MODL /[id number]
--- NOTE | 2019-05-10 07:03 | PCM48HPAN ---
Post Anesthesia Note - EVALUATION WITHIN 48HRS OF ANESTHETIC Vital Signs in Normal Range: Yes Patient Participated in Evaluation: Yes Respiratory Function Stable: Yes Airway Patent: Yes Cardiovascular Function Stable: Yes Hydration Status Stable: Yes Pain Control Satisfactory: Yes Nausea and Vomiting Control Satisfactory: Yes Mental Status Recovered: Yes Vital Signs: Last Vital Signs Temp Pulse 76 05/10/19 04:15 Resp 17 05/10/19 04:15 BP 112/62 05/10/19 04:15 Pulse Ox 96 05/10/19 04:15
[2019-05-10] MEDS: Ibuprofen 800 MG Tab PO PRN ×2 (09:59→18:43)
--- NOTE | 2019-05-10 10:08 | PCM.PNPP ---
- General Info Date of Service: 05/10/19 Functional Status: Reports: Pain Controlled, Tolerating Diet, Ambulating, Urinating - Review of Systems General: Reports: No Symptoms HEENT: Reports: No Symptoms Pulmonary: Reports: No Symptoms Cardiovascular: Reports: No Symptoms Gastrointestinal: Reports: No Symptoms Genitourinary: Reports: No Symptoms Musculoskeletal: Reports: No Symptoms Skin: Reports: No Symptoms Neurological: Reports: No Symptoms Psychiatric: Reports: No Symptoms - General Info Date of Service: 05/10/19 - Patient Data Vital Signs - Most Recent: Last Vital Signs Temp 36.5 C 05/10/19 08:09 Pulse 76 05/10/19 08:09 Resp 18 05/10/19 08:09 BP 108/68 05/10/19 08:09 Pulse Ox 98 05/10/19 08:09 Weight - Most Recent: 93.894 kg Lab Results - Last 24 Hours: Laboratory Results - last 24 hr 05/09/19 05/09/19 05/09/19 Range/Units 16:20 16:20 20:20 WBC 13.64 H (4.0-11.0) K/uL RBC 3.97 L (4.30-5.90) M/uL Hgb 13.2 (12.0-16.0) g/dL Hct 38.4 (36.0-46.0) % MCV 96.7 (80.0-98.0) fL MCH 33.2 H (27.0-32.0) pg MCHC 34.4 (31.0-37.0) g/dL RDW Std Deviation 44.7 (28.0-62.0) fl RDW Coeff of Mary 13 (11.0-15.0) % Plt Count 201 (150-400) K/uL MPV 10.60 (7.40-12.00) fL Nucleated RBC % 0.0 /100WBC Nucleated RBCs # 0 K/uL Cord ABG pH 7.332 (7.18-7.38) Cord ABG Base Excess -3 (-10--2) Cord VBG pH 7.338 (7.25-7.45) Cord VBG Base Excess -3 (-10--2) Blood Type AB POSITIVE Antibody Screen NEGATIVE 05/10/19 Range/Units 06:01 WBC (4.0-11.0) K/uL RBC (4.30-5.90) M/uL Hgb 11.7 L (12.0-16.0) g/dL Hct 34.3 L (36.0-46.0) % MCV (80.0-98.0) fL MCH (27.0-32.0) pg MCHC (31.0-37.0) g/dL RDW Std Deviation (28.0-62.0) fl RDW Coeff of Mary (11.0-15.0) % Plt Count (150-400) K/uL MPV (7.40-12.00) fL Nucleated RBC % /100WBC Nucleated RBCs # K/uL Cord ABG pH (7.18-7.38) Cord ABG Base Excess (-10--2) Cord VBG pH (7.25-7.45) Cord VBG Base Excess (-10--2) Blood Type Antibody Screen Med Orders - Current: Current Medications Acetaminophen (Tylenol Extra Strength) 500 mg PO Q4H PRN PRN Reason: Pain Acetaminophen (Tylenol Extra Strength) 1,000 mg PO Q4H PRN PRN Reason: Pain Al Hydroxide/Mg Hydroxide (Mag-Al Plus) 30 ml PO Q8H PRN PRN Reason: Heartburn Benzocaine/Menthol (Dermoplast Pain Relief 20%-0.5% [place]) 78 gm TOP ASDIRECTED PRN PRN Reason: Perineal Comfort Measure Last Admin: 05/09/19 21:19 Dose: 78 gm Bisacodyl (Dulcolax) 10 mg RECTAL ONETIME PRN PRN Reason: Constipation Carboprost Tromethamine (Hemabate Ds) 250 mcg IM ASDIRECTED PRN PRN Reason: Post Hemorrhage Docusate Sodium (Colace) 100 mg PO BID PRN PRN Reason: Constipation Emollient Ointment (Lansinoh Hpa) 0 gm TOP ASDIRECTED PRN PRN Reason: Sore Nipples Lactated Ringer's (Ringers, Lactated) 1,000 mls @ 150 mls/hr IV ASDIRECTED ANDRE Last Admin: 05/09/19 17:35 Dose: 150 mls/hr Oxytocin/Sodium Chloride (Oxytocin 30 Unit/500 Ml-Ns) 30 unit in 500 mls @ 999 mls/hr IV TITRATE [facility] Last Admin: 05/09/19 20:22 Dose: 999 mls/hr Tranexamic Acid 1,000 mg/ (Sodium Chloride) 110 mls @ 660 mls/hr IV ONETIME PRN PRN Reason: Bleeding Ibuprofen (Motrin) 400 mg PO Q4H PRN PRN Reason: Pain Ibuprofen (Motrin) 800 mg PO Q6H PRN PRN Reason: Pain Last Admin: 05/10/19 09:59 Dose: 800 mg Methylergonovine Maleate (Methergine) 0.2 mg IM ASDIRECTED PRN PRN Reason: Post Hemorrhage Nalbuphine HCl (Nubain) 10 mg IVPUSH Q1H PRN PRN Reason: Pain (severe 7-10) Ondansetron HCl (Zofran) 4 mg IVPUSH Q6H PRN PRN Reason: Nausea/Vomiting Oxycodone HCl (Oxycodone) 5 mg PO Q2H PRN PRN Reason: Pain Sodium Chloride (Saline Flush) 10 ml FLUSH ASDIRECTED PRN PRN Reason: Keep Vein Open Sodium Chloride (Saline Flush) 2.5 ml FLUSH ASDIRECTED PRN PRN Reason: Keep Vein Open Sodium Chloride (Normal Saline) 10 ml IV ASDIRECTED PRN PRN Reason: IV Use Sterile Water (Sterile Water For Irrigation) 1,000 ml IRR ASDIRECTED PRN PRN Reason: delivery Witch Fifi (Tucks) 1 pad TOP ASDIRECTED PRN PRN Reason: comfort care Last Admin: 05/09/19 21:24 Dose: 1 pad Discontinued Medications Butorphanol Tartrate (Stadol) 1 mg IVPUSH Q1H PRN PRN Reason: Pain Fentanyl/Bupivacaine HCl (Uwluxdod-Isrco-Bs 2 Mcg/Ml-0.125%) Confirm Administered Dose 100 mls @ as directed .ROUTE .STK-MED ONE Stop: 05/09/19 16:40 Last Admin: 05/10/19 09:59 Dose: Not Given Lidocaine HCl (Xylocaine 1%) 50 ml INJECT ONETIME PRN PRN Reason: Laceration repair Misoprostol (Cytotec) 200 mcg PO ONETIME PRN PRN Reason: Post Hemorrhage - Infant Interaction Support Person: - Recovery Exam Fundal Tone: Firm Fundal Level: At Umbilicus Fundal Placement: Midline Lochia Amount: Scant Lochia Color: Rubra/Red Perineum Description: Other (see below) Other Perinuem Description: 1st deg tear Episiotomy/Laceration: Approximated Bladder Status: Nonpalpable, Voiding Urinary Elimination: Voided - Exam General: Alert HEENT: Pupils Equal Neck: Supple Lungs: Clear to Auscultation Cardiovascular: Regular Rate, Regular Rhythm GI/Abdominal Exam: Normal Bowel Sounds Extremities: Normal Inspection Neurological: No New Focal Deficit Psy/Mental Status: Alert - Problem List & Annotations (1) Vaginal delivery SNOMED Code(s): 786750983 Code(s): O80 - ENCOUNTER FOR FULL-TERM UNCOMPLICATED DELIVERY Status: Acute Current Visit: No - Problem List Review Problem List Initiated/Reviewed/Updated: Yes - My Orders Last 24 Hours: My Active Orders 05/09/19 13:30 Non Stress Test [RC] PER UNIT ROUTINE Up ad Diamante [RC] ASDIRECTED Vaginal Exam [RC] Click to Edit Vital Signs [RC] PER UNIT ROUTINE 05/09/19 16:02 Patient Status [ADT] Routine Heart Tones [RC] CONTINUOUS Non Stress Test [RC] PER UNIT ROUTINE Vaginal Exam [RC] PRN Vital Signs [RC] PER UNIT ROUTINE Carboprost Tromethamine [Hemabate DS] 250 mcg IM ASDIRECTED PRN Methylergonovine [Methergine] 0.2 mg IM ASDIRECTED PRN Nalbuphine [Nubain] 10 mg IVPUSH Q1H PRN Sodium Chloride 0.9% [Normal Saline] 10 ml IV ASDIRECTED PRN Sodium Chloride 0.9% [Saline Flush] 10 ml FLUSH ASDIRECTED PRN Sodium Chloride 0.9% [Saline Flush] 2.5 ml FLUSH ASDIRECTED PRN Tranexamic Acid [Cyklokapron] 1,000 mg Sodium Chloride 0.9% [Normal Saline] 100 ml IV ONETIME Water For Irrigation,Sterile [Sterile Water for Irrigation] 1,000 ml IRR ASDIRECTED PRN Peripheral IV Insertion Adult [OM.PC] Routine Resuscitation Status Routine 05/09/19 16:15 Lactated Ringers [Ringers, Lactated] 1,000 ml IV ASDIRECTED Oxytocin/0.9 % Sodium Chloride [Oxytocin 30 Unit/500 ML-NS] 30 unit in 500 ml IV TITRATE - Assessment Assessment:: 33 yo P3 s/p PPD1 , ambulating , voiding and tolerating regular ,Normal lochia , - Plan Plan:: Pain control as needed Routine care Continue Want discharge home tomorrow
[2019-05-10] MEDS: Docusate Sodium 100 MG Cap PO PRN (19:50)
[2019-05-11] MEDS: Ibuprofen 800 MG Tab PO PRN (07:27)
[2019-05-11] MEDS: Docusate Sodium 100 MG Cap PO PRN (07:29)
[2019-05-11 07:38] VITALS: BP 131/78
--- NOTE | 2019-05-11 08:39 | PCM.PNPP ---
- General Info Date of Service: 05/11/19 Functional Status: Reports: Pain Controlled, Tolerating Diet, Ambulating, Urinating - Review of Systems General: Reports: No Symptoms HEENT: Reports: No Symptoms Pulmonary: Reports: No Symptoms Cardiovascular: Reports: No Symptoms Gastrointestinal: Reports: No Symptoms Genitourinary: Reports: No Symptoms Musculoskeletal: Reports: No Symptoms Skin: Reports: No Symptoms Neurological: Reports: No Symptoms Psychiatric: Reports: No Symptoms - General Info Date of Service: 05/11/19 - Patient Data Vital Signs - Most Recent: Last Vital Signs Temp 36.8 C 05/11/19 07:37 Pulse 62 05/11/19 07:37 Resp 17 05/11/19 07:37 BP 131/78 05/11/19 07:37 Pulse Ox 99 05/11/19 07:37 Weight - Most Recent: 93.894 kg Med Orders - Current: Current Medications Acetaminophen (Tylenol Extra Strength) 500 mg PO Q4H PRN PRN Reason: Pain Acetaminophen (Tylenol Extra Strength) 1,000 mg PO Q4H PRN PRN Reason: Pain Al Hydroxide/Mg Hydroxide (Mag-Al Plus) 30 ml PO Q8H PRN PRN Reason: Heartburn Benzocaine/Menthol (Dermoplast Pain Relief 20%-0.5% [place]) 78 gm TOP ASDIRECTED PRN PRN Reason: Perineal Comfort Measure Last Admin: 05/09/19 21:19 Dose: 78 gm Bisacodyl (Dulcolax) 10 mg RECTAL ONETIME PRN PRN Reason: Constipation Carboprost Tromethamine (Hemabate Ds) 250 mcg IM ASDIRECTED PRN PRN Reason: Post Hemorrhage Docusate Sodium (Colace) 100 mg PO BID PRN PRN Reason: Constipation Last Admin: 05/11/19 07:29 Dose: 100 mg Emollient Ointment (Lansinoh Hpa) 0 gm TOP ASDIRECTED PRN PRN Reason: Sore Nipples Last Admin: 05/10/19 19:50 Dose: 7 gm Lactated Ringer's (Ringers, Lactated) 1,000 mls @ 150 mls/hr IV ASDIRECTED ANDRE Last Admin: 05/09/19 17:35 Dose: 150 mls/hr Oxytocin/Sodium Chloride (Oxytocin 30 Unit/500 Ml-Ns) 30 unit in 500 mls @ 999 mls/hr IV TITRATE ANDRE Last Admin: 05/09/19 20:22 Dose: 999 mls/hr Tranexamic Acid 1,000 mg/ (Sodium Chloride) 110 mls @ 660 mls/hr IV ONETIME PRN PRN Reason: Bleeding Ibuprofen (Motrin) 400 mg PO Q4H PRN PRN Reason: Pain Ibuprofen (Motrin) 800 mg PO Q6H PRN PRN Reason: Pain Last Admin: 05/11/19 07:27 Dose: 800 mg Methylergonovine Maleate (Methergine) 0.2 mg IM ASDIRECTED PRN PRN Reason: Post Hemorrhage Nalbuphine HCl (Nubain) 10 mg IVPUSH Q1H PRN PRN Reason: Pain (severe 7-10) Ondansetron HCl (Zofran) 4 mg IVPUSH Q6H PRN PRN Reason: Nausea/Vomiting Oxycodone HCl (Oxycodone) 5 mg PO Q2H PRN PRN Reason: Pain Sodium Chloride (Saline Flush) 10 ml FLUSH ASDIRECTED PRN PRN Reason: Keep Vein Open Sodium Chloride (Saline Flush) 2.5 ml FLUSH ASDIRECTED PRN PRN Reason: Keep Vein Open Sodium Chloride (Normal Saline) 10 ml IV ASDIRECTED PRN PRN Reason: IV Use Sterile Water (Sterile Water For Irrigation) 1,000 ml IRR ASDIRECTED PRN PRN Reason: delivery Janel Calix (Tucks) 1 pad TOP ASDIRECTED PRN PRN Reason: comfort care Last Admin: 05/09/19 21:24 Dose: 1 pad Discontinued Medications Butorphanol Tartrate (Stadol) 1 mg IVPUSH Q1H PRN PRN Reason: Pain Fentanyl/Bupivacaine HCl (Acrluqwb-Hwitt-Uj 2 Mcg/Ml-0.125%) Confirm Administered Dose 100 mls @ as directed .ROUTE .STK-MED ONE Stop: 05/09/19 16:40 Last Admin: 05/10/19 09:59 Dose: Not Given Lidocaine HCl (Xylocaine 1%) 50 ml INJECT ONETIME PRN PRN Reason: Laceration repair Misoprostol (Cytotec) 200 mcg PO ONETIME PRN PRN Reason: Post Hemorrhage - Interaction Infant Disposition, : in Room with Family Infant Interaction: Holding Infant Feeding: Breastfed ; Nursed Well Support Person: - Recovery Exam Fundal Tone: Firm Fundal Level: 2 Fingerbreadths Below Umbilicus Fundal Placement: Midline Lochia Amount: Scant Lochia Color: Rubra/Red Perineum Description: Other (see below) Other Perinuem Description: 1st degree lac Episiotomy/Laceration: Approximated Bladder Status: Voiding Urinary Elimination: Voided - Exam General: Alert, Oriented HEENT: Pupils Equal Neck: Supple Lungs: Clear to Auscultation, Normal Respiratory Effort Cardiovascular: Regular Rate, Regular Rhythm GI/Abdominal Exam: Normal Bowel Sounds, Soft, No Organomegaly, No Distention, No Mass Extremities: Normal Inspection, Non-Tender, No Pedal Edema Skin: Warm, Dry, Intact Neurological: No New Focal Deficit Psy/Mental Status: Alert, Normal Affect, Normal Mood - Problem List & Annotations (1) Vaginal delivery SNOMED Code(s): 645755691 Code(s): O80 - ENCOUNTER FOR FULL-TERM UNCOMPLICATED DELIVERY Status: Acute Current Visit: No - Problem List Review Problem List Initiated/Reviewed/Updated: Yes - My Orders Last 24 Hours: My Active Orders 05/11/19 08:05 Ready for Discharge [RC] PER UNIT ROUTINE - Assessment Assessment:: day #2 after , stable minimal lochia, well, would like to go home today. - Plan Plan:: Dismiss to home today, discharge instructions reviewed.
== END 2019-05-11 09:30 | disposition home or self-care (01) | DRG 560 ==
LOC: MW.OB 13:26 → MW.OBCHECK 13:26 → MW.OB 16:02 → OBSVTOIN 20:20 → MW.OB 05-10 00:43
PROVIDERS: ADMIT Obstetrics & Gynecology; ATTEND Obstetrics & Gynecology
PROC: 10E0XZZ Delivery of Products of Conception, External Approach (ICD-10-PCS; principal; 2019-05-09)
PROC: 0HQ9XZZ Repair Perineum Skin, External Approach (ICD-10-PCS; 2019-05-09)
DX: O99.214 Obesity complicating childbirth (principal); O70.0 First degree perineal laceration during delivery; E66.9 Obesity, unspecified; Z3A.39 39 weeks gestation of pregnancy; Z37.0 Single live birth
CPT/HCPCS: 01967; 36415; 51702; 59025; 59409; 82803; 85014; 85018; 85027; 86850; 86900; 86901; A9270-GY; J2590; J7120